=== PATIENT | male | born 1930 | race Caucasian/White ===

== ENCOUNTER → 2016-09-07 | Outpatient (CLI) | payer MEDICARE, OTHER | END | disposition short-term general hospital (02) | LOC: CLORTH 10:52 | DX: M25.562 Pain in left knee (principal); M25.462 Effusion, left knee; Z96.652 Presence of left artificial knee joint ==

== ENCOUNTER → 2016-09-21 | Outpatient (CLI) | payer MEDICARE, OTHER | END | disposition short-term general hospital (02) | LOC: CLNEUR 03:36 | DX: G20 Parkinson's disease (principal); R53.1 Weakness; R25.3 Fasciculation; Z79.01 Long term (current) use of anticoagulants ==